=== PATIENT | male | born 1935 | race Hispanic/Latino ===

== ENCOUNTER 2018-05-23 16:01 | Emergency (ER) | payer MEDICARE, OTHER ==
[~2018-05-23] VITALS: Ht 170.2 cm; Wt 94.0 kg
[~2018-05-23 16:01] MED LIST: FLEXERIL PO; LOSARTAN POTAS100 MG PO; MELOXICAM7.5 MG PO; ULTRAM50 M1 PO
[2018-05-23] MEDS ORDERED: LORATADINE10 M1 PO (16:30)
[2018-05-23] MEDS ORDERED: TAMSULOSIN HCL0.4 MG PO (16:30)
[2018-05-23 17:37] LABS: HEMOGLOBIN 13.7 g/dl (14.0-18.0); IMMATURE GRANULOCYTES 0.4 % (0.0-5.0); MEAN CELL VOLUME 89.4 fL CALC (80.0-100.0); MEAN CORPUSCULAR HGB 28.5 pG CALC (26.0-32.0); MEAN CORPUSCULAR HGB CONC 31.9 g/L CALC (32.0-36.0); NEUT# 2.21 thou/uL (1.82-7.42); RED BLOOD COUNT 4.81 mill/uL (4.70-6.10); RED CELL DISTRI WIDTH 14.4 % (11.5-15.5)
[2018-05-23 17:57] LABS: ALBUMIN 3.8 g/dL (3.2-5.0); ALKALINE PHOSPHATASE 122 u/l (38-126); ANION GAP 13 (6-22 (CALC)); BILIRUBIN, TOTAL 0.4 mg/dL (0.0-1.4); BUN 19 mg/dL (8-23); BUN/CREATININE RATIO 25 (12-20 (CALC)); CARBON DIOXIDE 28 mmol/l (22-30); CHLORIDE 107 mmol/l (95-108); CREATININE 0.8 mg/dL (0.7-1.3); GFR > 60 ML/MIN (>=60 (CALC)); GFR FOR AFR.AMER. > 60 ML/MIN (>=60 (CALC)); POTASSIUM 4.2 mmol/l (3.5-5.1); SGOT/AST 25 u/l (19-48); SODIUM 144 mmol/l (137-146); TOTAL PROTEIN 6.8 g/dL (6.3-8.2)
[2018-05-23 18:15] LABS: URINE BILIRUBIN - DIPSTICK NEGATIVE (NEGATIVE); URINE BLOOD DIPSTICK TRACE-INTACT (NEGATIVE); URINE COLOR YELLOW; URINE GLUCOSE - DIPSTICK NEGATIVE (NEGATIVE); URINE KETONE NEGATIVE (NEGATIVE); URINE LEUK ESTERASE NEGATIVE (NEGATIVE); URINE NITRITE - DIPSTICK NEGATIVE (Negative); URINE PROTEIN - DIPSTICK NEGATIVE (NEG-TRACE); URINE SPECIFIC GRAVITY >=1.030; URINE UROBILINOGEN - DIPSTICK 0.2 E.U./dL (0.2)
[2018-05-23 18:16] LABS: URINE CLARITY CLEAR
[2018-05-23 18:27] LABS: TSH, 3RD GENERATION 1.86 uIU/mL (0.47 - 4.68)
[2018-05-23 18:29] VITALS: BP 115/75
[2018-05-23] MEDS ORDERED: VOLTAREN - GENE75 MG PO (18:37)
== END 2018-05-23 18:41 | disposition home or self-care (01) ==
LOC: ED 16:01
PROVIDERS: Family Medicine
DX: M47.812 Spondylosis without myelopathy or radiculopathy, cervical region (principal); R53.82 Chronic fatigue, unspecified; R53.1 Weakness